=== PATIENT | male | born 1985 | race Hispanic/Latino ===

== ENCOUNTER 2019-12-21 13:28 | Emergency (ER) | payer SELFPAY ==
--- NOTE | 2019-12-21 13:56 | RAD ---
RIGHT ANKLE 3 VIEWS: Date: 12/21/2019 HISTORY: Injury, right ankle pain and swelling. FINDINGS/IMPRESSION: There is soft tissue swelling. The ankle mortise is maintained. There is a minimally displaced obliqu e fracture of the distal fibula. POS: AH
[2019-12-21] MEDS ORDERED: HYDROcodone/Acetaminophen 10/325 mg Tablet ONE (15:46)
== END 2019-12-21 16:25 | disposition home or self-care (01) ==
LOC: ERS 13:28
DX: S82.831A Other fracture of upper and lower end of right fibula, initial encounter for closed fracture (principal); X58.XXXA Exposure to other specified factors, initial encounter
CPT/HCPCS: 27786